=== PATIENT | female | born 1985 | race Hispanic/Latino ===

== ENCOUNTER 2020-06-22 11:00 | Inpatient (IN) | payer OTHER ==
[~2020-06-22] VITALS: Ht 157.5 cm; Wt 76.7 kg
[2020-06-27] MEDS ORDERED: CEFAZOLIN SODIUM 1 GM VIAL IVP PRN (05:30)
[2020-06-27] MEDS ORDERED: LACTATED RINGERS 1000ML 1,000 ML IV SCH (05:30)
[2020-06-27] MEDS ORDERED: CALDOLOR 800MG+NS 250ML 250 ML IV PRN (05:30)
[2020-06-27 05:48] LABS: APPEARANCE,URINE Cloudy (CLEAR); BILIRUBIN,URINE Negative (NEGATIVE); COLOR,URINE Yellow (YELLOW); GLUCOSE, URINE (UA) Negative (NEGATIVE); KETONES,URINE Negative (NEGATIVE); LEUKOCYTE ESTERASE ,URINE Trace (NEGATIVE); NITRATE,URINE Negative (NEGATIVE); OCCULT BLOOD,URINE Negative (NEGATIVE); PROTEIN,URINE Negative (NEGATIVE)
[2020-06-27 05:52] LABS: HEMATOCRIT 37.2 % (36-48); MEAN CORPUSCULAR HEMOGLOBIN 27.2 pg (27.0-33.0); MEAN CORPUSCULAR VOLUME 85.1 fL (79-99); RED BLOOD CELL COUNT(AUTO) 4.37 MIL/uL (4.00-5.50); RED CELL DISTRIBUTION WIDTH 15.5 % (11.0-15.5)
[2020-06-27 05:56] LABS: AMPHET/METH SCREEN,URINE NEGATIVE (NEGATIVE); BARBITURATE SCREEN, URINE NEGATIVE (NEGATIVE); BENZODIAZEPINES SCREEN,URINE NEGATIVE (NEGATIVE); CANNABINOID SCREEN,URINE NEGATIVE (NEGATIVE); COCAINE SCREEN,URINE NEGATIVE (NEGATIVE); OPIATE SCREEN,URINE NEGATIVE (NEGATIVE); PHENCYCLIDINE SCREEN,URINE NEGATIVE (NEGATIVE)
[2020-06-27 06:31] LABS: BACTERIA,URINE Many /HPF (None Seen); RBC,URINE 0-1 /HPF (0-1)
[2020-06-27 06:32] LABS: MUCUS,URINE Few LPF (None Seen); SQUAMOUS EPITHELIAL CELL,UR Moderate /HPF (0-2)
[2020-06-27] MEDS ORDERED: OXYTOCIN-LR 20 UNITS/1000 ML 1,000 ML IV ONE ×2 (07:48→08:44)
[2020-06-27] MEDS ORDERED: ONDANSETRON HCL 4 MG/2 ML VIAL ONE ×2 (07:55→11:02)
[2020-06-27] MEDS ORDERED: FENTANYL CITRATE PF 50 MCG/1 ML 2ML VIAL ONE (07:56)
[2020-06-27] MEDS ORDERED: DURAMORPH PF1 MG/ML 10ML AMP IV ONE (07:56)
[2020-06-27] MEDS ORDERED: MEPERIDINE-PF 75 MG/ML SYG IM PRN (09:45)
[2020-06-27] MEDS ORDERED: SODIUM CHLORIDE 0.9% 10 ML VIAL IVP PRN (09:45)
[2020-06-27] MEDS ORDERED: PROMETHAZINE HCL 25 MG/ML 1ML AMPULE IM PRN (09:45)
[2020-06-27] MEDS ORDERED: OXYTOCIN-LR 20 UNITS/1000 ML 1,000 ML IV PRN (09:45)
[2020-06-27 10:04] VITALS: BP 121/64
[2020-06-27] MEDS ORDERED: PREN-154 PO (10:24)
[2020-06-27] MEDS ORDERED: ONDANSETRON HCL 4 MG/2 ML VIAL IVP PRN (10:30)
[2020-06-27 11:34] LABS: RAPID PLASMA REAGIN NONREACTIVE (NONREACTIVE)
[2020-06-27 16:21] VITALS: BP 130/74
[2020-06-27] MEDS: CALDOLOR 800MG+NS 250ML 250 ML IV SCH (17:13)
[2020-06-27] MEDS: DEXTROSE 5 %-0.45 % NACL 1,000 ML IV PRN (19:12)
[2020-06-27 20:00] VITALS: BP 124/66
[2020-06-27 23:20] VITALS: BP 103/50
[2020-06-28] MEDS: CALDOLOR 800MG+NS 250ML 250 ML IV SCH (01:41)
[2020-06-28] MEDS: DEXTROSE 5 %-0.45 % NACL 1,000 ML IV PRN (02:41)
[2020-06-28 03:23] VITALS: BP 91/57
[2020-06-28 06:30] LABS: HEMATOCRIT 27.7 % (36-48); MEAN CORPUSCULAR HEMOGLOBIN 27.3 pg (27.0-33.0); MEAN CORPUSCULAR HGB CONC 31.8 g/dL (32.0-36.0); RED BLOOD CELL COUNT(AUTO) 3.22 MIL/uL (4.00-5.50); RED CELL DISTRIBUTION WIDTH 15.6 % (11.0-15.5); WHITE BLOOD COUNT (AUTO) 6.5 K/uL (4.8-10.8)
[2020-06-28] MEDS ORDERED: LANOLIN 30GM OINTMENT TP PRN (07:15)
[2020-06-28] MEDS ORDERED: ACETAMINOPHEN EXTRA STRENGTH 500 MG TABLET PO PRN (07:15)
[2020-06-28] MEDS ORDERED: IBUPROFEN 600 MG TABLET PO PRN (07:15)
[2020-06-28] MEDS ORDERED: BISACODYL 10 MG SUPP.RECT RC PRN (07:15)
[2020-06-28] MEDS ORDERED: HYDROCODONE/ACETAMINOPHEN 5/325 MG TAB PO PRN (07:15)
[2020-06-28 07:20] VITALS: BP 109/68
[2020-06-28] MEDS: DOCUSATE SODIUM 100 MG CAP PO SCH ×2 (08:27→20:53)
[2020-06-28] MEDS: SIMETHICONE 80 MG TAB.CHEW PO PRN ×3 (08:28→20:52)
[2020-06-28] MEDS: IBUPROFEN 800 MG TAB PO SCH ×2 (09:45→18:14)
[2020-06-28 11:07] VITALS: BP 119/77
[2020-06-28] MEDS: ACETAMINOPHEN-CODEINE 300/30MG TAB PO PRN (15:25)
[2020-06-28 15:49] VITALS: BP 127/85
[2020-06-28 16:11] LABS: HEPATITIS Bs ANTIGEN SCREEN P Negative (Negative)
[2020-06-28 21:03] VITALS: BP 129/82
[2020-06-28 23:35] VITALS: BP 124/71
[2020-06-29] MEDS: IBUPROFEN 800 MG TAB PO SCH ×2 (01:54→08:56)
[2020-06-29 04:19] VITALS: BP 102/56
[2020-06-29] MEDS: ACETAMINOPHEN-CODEINE 300/30MG TAB PO PRN (06:12)
[2020-06-29 07:30] VITALS: BP 127/69
[2020-06-29] MEDS: SIMETHICONE 80 MG TAB.CHEW PO PRN (08:51)
[2020-06-29] MEDS: DOCUSATE SODIUM 100 MG CAP PO SCH (08:51)
[2020-06-29] MEDS ORDERED: WITCH HAZEL 1 PAD TP PRN (09:00)
[2020-06-29 12:00] VITALS: BP 138/88
== END 2020-06-29 12:40 | disposition home or self-care (01) | DRG 788 ==
LOC: OBSVTOIN 06-27 05:21 → LDH 06-27 05:21 → WSH 06-27 10:04
PROVIDERS: ADMIT Obstetrics & Gynecology; ATTEND Obstetrics & Gynecology
PROC: 3E0334Z Introduction of Serum, Toxoid and Vaccine into Peripheral Vein, Percutaneous Approach (ICD-10-PCS; 2020-06-27)
PROC: 10D00Z1 Extraction of Products of Conception, Low, Open Approach (ICD-10-PCS; principal; 2020-06-27 08:00)
DX: O34.211 Maternal care for low transverse scar from previous cesarean delivery (principal); Z37.0 Single live birth; O26.893 Other specified pregnancy related conditions, third trimester; O99.62 Diseases of the digestive system complicating childbirth; K21.9 Gastro-esophageal reflux disease without esophagitis; Z20.828 Contact with and (suspected) exposure to other viral communicable diseases; Z3A.39 39 weeks gestation of pregnancy; Z67.41 Type O blood, Rh negative
CPT/HCPCS: 36415; 80305; 81001; 83033; 85027; 86592; 86701; 86850; 86900; 86901; 87088; 87340; 87390; A4344; G0378; J0690; J1741; J2274; J2405; J2590; J2791; J3010; J7120; U0003